=== PATIENT | female | born 1970 | race Caucasian/White ===

== ENCOUNTER 2018-06-17 10:16 | Emergency (ER) | payer MEDICAID ==
[2018-06-17] MEDS ORDERED: HYDROmorphone 2 MG Tab PO SCH (11:45)
--- NOTE | 2018-06-17 13:25 | CT ---
INDICATION: Fall. Pain above right hip and lower back, scoliosis. LUMBOSACRAL SPINE CT WITHOUT CONTRAST: Spiral 2.5 mm axial sections were obtained through the lumbosacral spine with sagittal and coronal reconstruction 06/17/18. Hypertrophic degenerative changes and disc disease with vacuum disc phenomenon are noted at T11-12 and L5-S1. Vertebral body and disc heights were fairly well maintained, although there is mild loss of vertebral body volume at L1, which likely is old. An osteoporotic compression fracture in that area could be present, however since no comparison studies are available. There are some mineral hypertrophic changes anteriorly off vertebral bodies in general, but are most prominent at the first 2 mentioned levels. The neural foramina appear to be fairly patent. There does appear to be some narrowing of the neural foramina at L5-S1, however and T11-12. A dextroconcave scoliosis is noted of the upper middle lumbar spine. Hypertrophic changes are also noted at the posterior elements of L5-S1 and T11- 12 especially on the left. There are also present at T12-L1 on the left and to a minimal extent on the right and also T1-2, T2-3 and relatively minimal T3-4. T 4-5 only minimal degenerative change at the right sided apophyseal joint. A definite acute fracture or dislocation was not identified. Minimally bulging discs are noted at L1-2, L2-3 and very minimally at L3-4. L4- 5 disc is mildly bulging in general also. There is some spinal canal narrowing-- spinal stenosis of mild degree at L5-S1 due to posterior hypertrophic degenerative changes and mildly bulging disc material. IMPRESSION: 1. Degenerative changes and disc disease as noted above with mild degree of spinal stenosis at L5-S1. 2. No acute fracture or dislocation. 3. Rotoscoliosis dextroconcave moderate degree upper middle lumbar spine. Report to called Dr. Wilson at approximately 1305 hours. [facility]
--- NOTE | 2018-06-17 13:36 | US ---
INDICATION: Trauma. Fall on 06/10/18 and 06/16/18 chest trauma. LEFT RIBS WITH CHEST: Two frontal views of the chest were obtained and revealed the heart to be normal in size and shape. A moderate dextroconvex rotoscoliosis of the lower middle thoracic spine is noted. An active infiltrate, effusion, contusion or pneumothorax was not identified. Five images of the left ribs were obtained and revealed anterolaterally slight offset at the fracture sites. No other bony abnormality was seen in the left ribs. IMPRESSION: 1. No acute process in the chest. 2. Scoliosis lower middle thoracic spine. 3. Three rib fractures 7, 8 and 9 anterolaterally on the left with slight offset at the fracture sites. Report to called Dr. Wilson at approximately 1305 hours. [facility]
--- NOTE | 2018-06-18 08:29 | EDM.PDOC ---
ED HPI GENERAL MEDICAL PROBLEM - General Chief Complaint: Back Pain or Injury Stated Complaint: BACK PAIN Time Seen by Provider: 06/17/18 10:45 Source of Information: Reports: Patient History Limitations: Reports: No Limitations - History of Present Illness INITIAL COMMENTS - FREE TEXT/NARRATIVE: This 47 woman who is known to have chronic lower back pain slipped last night and notes she has "numbness bilateral lower extremities ". "My back is killing me." Patient noted she fell after waking up then going to the bathroom and back to bed. She got tangled up and electrical cord and fell. She has a history of scoliosis and "a bad back without any surgery." 2 years ago her bad back was treated at [facility]. She's been followed by chiropractor. Her recent chiropractic visit was first part of May Recently she has been "trying to get away from my family who live in [place]." " My father is an A___ hole. He is a alcoholic. Many of the family are drug addicted and she had to "get out of town" and she does "not want to raise her 9- year-old daughter in a drug infested environment." In the past patient was into drugs and has completed a drug recovery 6-8 months ago. 05/20 2018 she fell and bruised her right chest. As she slipped and grabbed a towel bar, to break her fall, she fell onto furniture and traumatize right chest. Then recently 06/09 (Saturday) she was moving and unpacking her household goods that she had moved from [place] to [facility] and again she tripped and hurt: her left chest, right hip and left elbow. "Since 09 June my right hip is gotten "nasty bad". I have "natural loose ligaments and the trauma makes my hip feel worse." Last night, 06/16/18 she fell onto the floor and tripped over another extension cord. Patient's pain now is mostly in the left lower spine she has occasional tingling of her legs. The tingling in her legs is baseline but "it's stronger than was before." She has underlying fibromyalgia which she treats with Lyrica She's had a history of a bad back since she 6 weeks post 9 years ago and at that time had the onset of fibromyalgia and has had lower back left convex scoliosis. She notes her current fiance "pushes her." I feel like I can't get any rest"... " he keeps pushing me to unpack move items". She used to walk 2 miles a day. But since she's had her fibromyalgia _onset 6 weeks post 9 years ago she does not walk muchl. Rodrigues asked what she expected b me to do, she wanted me to "help me so I can operate." Has not eaten today so "I feel miserable". Tubal ligation 2008, uterine ablation 2011. 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: Musculoskeletal History: Reports: Other (See Below) Other Musculoskeletal History: scoliosis Psychiatric History: Reports: Anxiety, Depression - Past Surgical History HEENT Surgical History: Reports: Tonsillectomy Female Surgical History: Reports: Section Social & Family History - Family History Family Medical History: Noncontributory - Tobacco Use Smoking Status *Q: Current Every Day Smoker Years of Tobacco use: 20 Packs/Tins Daily: 1 - Caffeine Use Caffeine Use: Reports: Coffee - Recreational Drug Use Recreational Drug Use: Yes Recreational Drug Type: Reports: Marijuana/Hashish Recreational Drug Use Frequency: Monthly ED ROS GENERAL - Review of Systems Review Of Systems: ROS reveals no pertinent complaints other than HPI. ED EXAM,LOWER BACK PAIN/INJURY - Physical Exam Exam: See Below Text/Narrative:: Moderate distress with left chest wall discomfort, right hip pain. Left elbow pain Exam Limited By: No Limitations General Appearance: Alert, Moderate Distress Eye Exam: Bilateral Eye: Abnormal Pupil (Pupils pinpoint and nonreactive) Ears: Normal External Exam, Normal Canal, Normal TMs Nose: Normal Inspection, Normal Mucosa Throat/Mouth: Normal Inspection, Normal Lips, Normal Teeth, Normal Gums, Normal Oropharynx, Normal Voice, No Airway Compromise Head: Atraumatic, Normocephalic Neck: Normal Inspection, Supple Respiratory/Chest: No Respiratory Distress, Lungs Clear, Normal Breath Sounds, No Accessory Muscle Use, Chest Non-Tender, Other (Tender ribs 6 through 11 anterior axillary line and mid clavicular discomfort with palpation no step off or crepitance. No rales noted.) Cardiovascular: Normal Peripheral Pulses, Regular Rate, Rhythm, No Edema, No Gallop, No JVD, No Murmur, No Rub GI/Abdominal: Normal Bowel Sounds, Soft, Non-Tender, No Organomegaly, No Distention, No Abnormal Bruit, No Mass (Female) Exam: Deferred Rectal (Female) Exam: Deferred Back Exam: Other (Left convex lumbar thoracic scoliosis mild moderate severe left lumbar or spinal muscle spasm. Left trochanteric area mild tenderness. ) Neurological: Normal Dorsiflexion, CN II-XII Intact, Normal Plantar Flexion, Normal Gait, Normal Reflexes, No Motor/Sensory Deficits, Oriented x 3 DTR - Lower Extremities: 2+: Knee (R), Knee (L), Ankle (R), Ankle (L) Psychiatric: Other (Has moderate pain examination of her left paraspinal lumbar region muscles) Skin Exam: Warm Lymphatic: No Adenopathy Course - Vital Signs Last Recorded V/S: Last Vital Signs Temp 36.8 C 06/17/18 13:27 Pulse 84 06/17/18 13:27 Resp 18 06/17/18 13:27 BP 141/83 H 06/17/18 13:27 Pulse Ox 99 06/17/18 13:27 - Orders/Labs/Meds Labs: Laboratory Tests 06/17/18 06/17/18 06/17/18 Range/Units 11:50 11:50 11:50 WBC 6.1 (4.5-12.0) X10-3/uL RBC 4.57 (3.23-5.20) x10(6)uL Hgb 12.2 (11.5-15.5) g/dL Hct 36.5 (30.0-51.3) % MCV 79.7 L (80-96) fL MCH 26.6 L (27.7-33.6) pg MCHC 33.4 (32.2-35.4) g/dL RDW 17.3 H (11.5-15.5) % Plt Count 207 (125-369) X10(3)uL MPV 10.0 (7.4-10.4) fL Neut % (Auto) 61.2 (46-82) % Lymph % (Auto) 29.3 (13-37) % Routt % (Auto) 6.7 (4-12) % Eos % (Auto) 2 (1.0-5.0) % Baso % (Auto) 1 (0-2) % Neut # (Auto) 3.7 (1.6-8.3) # Lymph # (Auto) 1.8 (0.6-5.0) # Routt # (Auto) 0.4 (0.0-1.3) # Eos # (Auto) 0.1 (0.0-0.8) # Baso # (Auto) 0.1 (0.0-0.2) # Sodium 138 (135-145) mmol/L Potassium 4.2 (3.5-5.3) mmol/L Chloride 103 (100-110) mmol/L Carbon Dioxide 30 (21-32) mmol/L BUN 25 H (7-18) mg/dL Creatinine 0.8 (0.55-1.02) mg/dL Est Cr Clr Drug Dosing TNP Estimated GFR (MDRD) > 60 (>60) BUN/Creatinine Ratio 31.3 H (9-20) Glucose 91 (80-116) mg/dL Calcium 8.6 (8.6-10.2) mg/dL Total Bilirubin 0.3 (0.1-1.3) mg/dL AST 14 (5-25) IU/L ALT 16 (12-36) U/L Alkaline Phosphatase 101 (56-112) IU/L C-Reactive Protein < 0.2 L (0.5-0.9) mg/dL Total Protein 7.4 (6.0-8.0) g/dL Albumin 3.9 (3.5-5.2) g/dL Globulin 3.5 g/dL Albumin/Globulin Ratio 1.1 Meds: Medications Discontinued Medications Generic Name Dose Route Start Last Admin Trade Name Freq PRN Reason Stop Dose Admin Hydromorphone HCl 2 mg 06/17/18 11:45 06/17/18 12:02 Dilaudid PO 2 mg Q6H ARTHUR Administration Departure - Departure Time of Disposition: 12:00 (Patient carry on some much with her terminal "back pain "as CT was performed CT was negative. Left chest wall no rib fracture noted or chest into thoracic abnormality noted. No contusion noted.Patient has a low pain threshold as evidenced by over exuberant response to pain on evaluationof her chest and left hip. She change her medication to Robaxin 750 mg 4 times a day. Stop Using all her Ativan. Gradually progressive increase activity as tolerated. She is to restart walking. No evidence for disc disease. She also has history of drug dependency consequently is not a candidate for any narcotic medications that magnify her already addictive potential) Disposition: Home, Self-Care 01 Condition: Fair Clinical Impression: Chemical dependency, Personality disorder, Low pain threshold Back pain Qualifiers: Back pain location: low back pain Chronicity: chronic Back pain laterality: left Sciatica presence: without sciatica Qualified Code(s): M54.5 - Low back pain; G89.29 - Other chronic pain - Discharge Information *PRESCRIPTION DRUG MONITORING PROGRAM REVIEWED*: Not Applicable *COPY OF PRESCRIPTION DRUG MONITORING REPORT IN PATIENT FRANKLIN: Not Applicable Prescriptions: Hydrocodone/Acetaminophen [Hydrocodon-Acetaminophen 5-325] 1 each PO Q6HR PRN # 18 tablet PRN Reason: Pain Methocarbamol [Robaxin-750] 750 mg PO QID #60 tablet Instructions: Incentive Spirometer, Rib Fracture Referrals: Magui Pro NP [Nurse Practitioner] - PCP,Not In Area [Primary Care Provider] - Beulah Almaraz NP [Nurse Practitioner] - Forms: ED Department Discharge Additional Instructions: The left 8/9/10 ribs are fractured. You've been prescribed an incentive spiromter uses every 2-3 hours. This will help prevent your lungs from partially collapsing or resulting in a pneumonia or bad lung infection. No abnormality noted on your lumbar spine except for scoliosis which is not new for you. You're going to have moderate muscle spasm so I prescribed a medicine that the neurosurgeons which we'll treat the muscle spasm and won't make you so sedated: Robaxin 750 mg 4 times a day as needed for muscle spasm. Follow-up your caregiver or doctor in 1 week. Earlier if worse You have been prescribed Vicodin for pain :1-2 tablets every 4-6 hours for pain Invariably patients get constipated with pain medicines. Consequently I prescribe (over the counter) Dulcolax 5 mg 1 tablet daily while you are taking pain medicines.
== END 2018-06-17 13:38 | disposition home or self-care (01) ==
LOC: FB.ED 10:16
DX: M54.5 Low back pain (principal); G89.29 Other chronic pain; F17.210 Nicotine dependence, cigarettes, uncomplicated; F41.9 Anxiety disorder, unspecified; F32.9 Major depressive disorder, single episode, unspecified; F19.20 Other psychoactive substance dependence, uncomplicated; F60.9 Personality disorder, unspecified
CPT/HCPCS: 36415; 71101; 72131; 80053; 85025; 86140; 94150; 99284; A9270

== ENCOUNTER 2018-08-15 12:30 | Emergency (ER) | payer MEDICAID ==
[~2018-08-15 12:30] MED LIST: Ketorolac 60 MG/2 ML SDV IM ONE
--- NOTE | 2018-08-15 12:36 | EDM.PDOC ---
ED HPI GENERAL MEDICAL PROBLEM - General Chief Complaint: Lower Extremity Injury/Pain Stated Complaint: LEFT HIP Time Seen by Provider: 08/15/18 12:32 Source of Information: Reports: Patient, EMS History Limitations: Reports: No Limitations - History of Present Illness INITIAL COMMENTS - FREE TEXT/NARRATIVE: Patient slipped on ice while walking dog, struck head against garage door, the fell onto left hip. No LOC. Complains of left hip pain. Patient was able to bear weight per EMS. Onset: Today Onset Date: 08/15/18 Onset Time: 10:30 Duration: Hour(s): (2) Location: Reports: Head, Lower Extremity, Left Quality: Reports: Dull Severity: Moderate - Related Data Allergies Allergy/AdvReac Type Severity Reaction Status Date / Time No Known Allergies Allergy Verified 06/17/18 11:53 Home Meds: Home Meds Acetaminophen/HYDROcodone [[place] 325-5 MG] 1 tab PO Q6H PRN #10 tab 08/15/18 [Rx ] DULoxetine HCl [Cymbalta] 60 mg PO DAILY 08/15/18 [History] LORazepam 2 mg PO ASDIRECTED PRN 08/15/18 [History] Methylphenidate HCl [Methylphenidate ER] 36 mg PO ACBREAKFAST 08/15/18 [History] Methylphenidate [Ritalin] 10 mg PO PCDINNER PRN 08/15/18 [History] Pregabalin [Lyrica] 200 mg PO TID 08/15/18 [History] tiZANidine [Zanaflex] 4 mg PO TID 08/15/18 [History] 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: Musculoskeletal History: Reports: Other (See Below) Other Musculoskeletal History: scoliosis Neurological History: Reports: Other (See Below) (Fibromyalgia) Psychiatric History: Reports: Anxiety, Depression - Past Surgical History HEENT Surgical History: Reports: Tonsillectomy Female Surgical History: Reports: Section Social & Family History - Family History Family Medical History: Noncontributory - Tobacco Use Smoking Status *Q: Current Every Day Smoker Tobacco Use Within Last Twelve Months: Cigarettes - Caffeine Use Caffeine Use: Reports: Coffee - Alcohol Use Alcohol Use History: No - Recreational Drug Use Recreational Drug Use: Yes Recreational Drug Type: Reports: Marijuana/Hashish Review of Systems - Review of Systems Review Of Systems: ROS reveals no pertinent complaints other than HPI. ED EXAM, GENERAL - Physical Exam Exam: See Below Exam Limited By: No Limitations General Appearance: Alert, WD/WN, No Apparent Distress Eye Exam: Bilateral Eye: EOMI, PERRL Ears: Normal External Exam Nose: Normal Inspection Throat/Mouth: Normal Inspection, No Airway Compromise Head: Atraumatic, Normocephalic Neck: Normal Inspection, Non-Tender Respiratory/Chest: No Respiratory Distress, Lungs Clear Cardiovascular: Regular Rate, Rhythm, No Murmur Peripheral Pulses: 2+: Dorsalis Pedis (L) GI/Abdominal: Soft, Non-Tender Extremities: Normal Capillary Refill, Other (moderate tenderness, ecchymosis and swelling to left hip) Neurological: Alert, Oriented, Normal Cognition, No Motor/Sensory Deficits Psychiatric: Normal Affect, Normal Mood Skin Exam: Warm, Dry Course - Vital Signs Last Recorded V/S: Last Vital Signs Temp 36.4 C 08/15/18 12:25 Pulse 92 08/15/18 12:25 Resp 20 08/15/18 12:25 BP 95/63 08/15/18 12:25 Pulse Ox 97 08/15/18 12:25 - Orders/Labs/Meds Orders: Active Orders 24 hr Category Date Time Status Cervical Spine wo Cont [CT] Stat Exams 08/15/18 12:30 Taken Head wo Cont [CT] Stat Exams 08/15/18 12:30 Taken Pelvis wo Cont [CT] Stat Exams 08/15/18 12:30 Taken Meds: Medications Discontinued Medications Generic Name Dose Route Start Last Admin Trade Name Maycolq PRN Reason Stop Dose Admin Hydrocodone Bitart/Acetaminophen 1 tab 08/15/18 13:46 [place] 325-5 Mg PO 08/15/18 13:47 ONETIME ONE Ketorolac Tromethamine 60 mg 08/15/18 12:30 08/15/18 13:22 Toradol IM 08/15/18 12:31 60 mg ONETIME ONE Administration - Radiology Interpretation Free Text/Narrative:: CT Head: No acute process. (per Dr. Dubose) CT C-spine: No fracture or subluxation. (per Dr. Dubose) CT Pelvis: No fracture or dislocation. (per Dr. Dubose) - Re-Assessments/Exams Free Text/Narrative Re-Assessment/Exam: 08/15/18 13:53 No relief of pain after Toradol 60mg IM. BP 122/70. Will give [place] 5/325 PO. Departure - Departure Time of Disposition: 13:56 Disposition: Home, Self-Care 01 Condition: Good Clinical Impression: Hematoma of left hip Qualifiers: Encounter type: initial encounter Qualified Code(s): S70.02XA - Contusion of left hip, initial encounter - Discharge Information *PRESCRIPTION DRUG MONITORING PROGRAM REVIEWED*: Yes *COPY OF PRESCRIPTION DRUG MONITORING REPORT IN PATIENT [place]ANKLIN: No Prescriptions: Acetaminophen/HYDROcodone [[place] 325-5 MG] 1 tab PO Q6H PRN #10 tab PRN Reason: Pain Instructions: Contusion, [id number] Referrals: Brittney Jasso COOKER MECHANIC [Primary Care Provider] - 3 Days Forms: ED Department Discharge Additional Instructions: Rest. Take OTC Ibuprofen as needed. Take [place] as needed for breakthrough pain. Hold Lorazepam while taking [place]. Follow up with your primary physician in 3 days. - My Orders Last 24 Hours: My Active Orders 08/15/18 12:30 Cervical Spine wo Cont [CT] Stat Head wo Cont [CT] Stat Pelvis wo Cont [CT] Stat - Assessment/Plan Last 24 Hours: My Active Orders 08/15/18 12:30 Cervical Spine wo Cont [CT] Stat Head wo Cont [CT] Stat Pelvis wo Cont [CT] Stat
[2018-08-15] MEDS ORDERED: Acetaminophen/HYDROcodone 325-5 MG Tab PO ONE (13:46)
--- NOTE | 2018-08-15 14:06 | CT ---
INDICATION: Fell walking the dog this a.m. CT HEAD WITHOUT CONTRAST: Spiral examination of the brain was obtained axially with sagittal and coronal reconstructions, 08/15/18 - no comparisons. Total exam DLP = 1,270.76 mGy-cm. No shift of midline structures, ventricular abnormalities, or abnormal areas of density were identified of any significance. There were some areas of increased density noted in basal ganglia bilaterally, likely representing non- clinically significant calcification. No bleeding site or hematoma was seen. No cranial fracture site was identified. Paranasal sinuses and mastoid air cells were well-aerated. IMPRESSION: Normal CT brain, no acute intracranial abnormality. MTDD
--- NOTE | 2018-08-15 14:13 | CT ---
INDICATION: Trauma, fell walking the dog this a.m. CT CERVICAL WITHOUT CONTRAST: Spiral 2.5 mm axial sections were obtained through the cervical spine with sagittal and coronal reconstructions, 08/15/18 - no comparisons. Total exam DLP = 372.53 mGy-cm. Hypertrophic degenerative changes and disk disease are suggested at the C5-6, C6 -7 levels with narrowed disk space and hypertrophic spurring anteriorly and posteriorly at those levels. Impingement on the neural foramina at those levels is noted, mostly on the right and more prominently at C6-7 than at C5-6. Vertebral body heights were maintained without evidence of a fracture or dislocation. Degenerative changes of moderate degree are noted at the atlantoodontoid joint. The odontoid and the atlas were intact in appearance. Degenerative changes are noted at the uncinate joints at the C5-6 and C6-7 levels, more severe at C6-7. Some relatively minimal degenerative change is noted at C7-T1 with the disk space slightly narrowed at that level also. Bone density appeared to be normal. Prevertebral space appeared to be normal. Apical lung included on the study was unremarkable. IMPRESSION: 1. No acute fracture or dislocation identified. 2. Degenerative changes and disk disease as noted above. MTDD
--- NOTE | 2018-08-15 14:28 | CT ---
INDICATION: Trauma, fell walking the dog this a.m., hematoma/bruise left hip area. CT PELVIS WITHOUT CONTRAST: Spiral 1.25 mm axial sections were obtained through the pelvis with sagittal and coronal reconstructions, 08/15/18 - no comparisons. Total exam DLP = 404.95 mGy-cm. The appendix appeared normal, visualized on axial images #48 through #86. No evidence of free air or bowel obstruction was seen. Urinary bladder appeared to be intact overall but with suggestion of slight thickening of the wall, which raises question of process such as cystitis - correlate clinically. Degenerative changes and disk disease are noted at L5-S1 with marked narrowing of the disk space, sclerosis, subchondral cystic changes, hypertrophic spurring , and vacuum disk phenomenon. Mild degenerative changes are noted at the sacroiliac joint on the right with minimal degenerative changes at the left sacroiliac joint. Mild degenerative changes are noted at the hip joints. No evidence of a fracture or dislocation was identified. IMPRESSION: 1. No acute fracture or dislocation. 2. 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 3. Suggestion of slightly thickened wall of urinary bladder, which could be on the basis of cystitis and should be correlated clinically. Report was called to Dr. Winters at 1340 hours on 08/15/18. [facility]
== END 2018-08-15 14:57 | disposition home or self-care (01) ==
LOC: FB.ED 12:30
DX: S70.02XA Contusion of left hip, initial encounter (principal); F17.210 Nicotine dependence, cigarettes, uncomplicated; F41.9 Anxiety disorder, unspecified; F32.9 Major depressive disorder, single episode, unspecified; Z79.899 Other long term (current) drug therapy; W00.0XXA Fall on same level due to ice and snow, initial encounter
CPT/HCPCS: 70450; 72125; 72192; 99284; A9270; J1885

== ENCOUNTER 2018-11-19 16:01 | Emergency (ER) | payer MEDICAID ==
--- NOTE | 2018-11-19 16:56 | EDM.PDOC ---
ED HPI GENERAL MEDICAL PROBLEM - General Chief Complaint: Upper Extremity Injury/Pain Stated Complaint: ULCERATION L FOREARM Time Seen by Provider: 11/19/18 16:50 Source of Information: Reports: Patient History Limitations: Reports: No Limitations - History of Present Illness INITIAL COMMENTS - FREE TEXT/NARRATIVE: Struck left forearm against car window frame 10 days ago. Patient states the area is ulcerated, has been applying triple antibiotic ointment. Patient worried the area may be infected. Has had chills. Also c/o left toe pain, possibly due to infection. Duration: Day(s): (10) Location: Reports: Upper Extremity, Left Severity: Mild - Related Data Allergies Allergy/AdvReac Type Severity Reaction Status Date / Time No Known Allergies Allergy Verified 08/15/18 21:46 Home Meds: Home Meds Acetaminophen/HYDROcodone [[place] 325-5 MG] 1 tab PO Q6H PRN #10 tab 08/15/18 [Rx ] DULoxetine HCl [Cymbalta] 60 mg PO DAILY 08/15/18 [History] LORazepam 2 mg PO ASDIRECTED PRN 08/15/18 [History] Methylphenidate HCl [Methylphenidate ER] 36 mg PO ACBREAKFAST 08/15/18 [History] Methylphenidate [Ritalin] 10 mg PO PCDINNER PRN 08/15/18 [History] Pregabalin [Lyrica] 200 mg PO TID 08/15/18 [History] tiZANidine [Zanaflex] 4 mg PO TID 08/15/18 [History] cephALEXin [Keflex] 500 mg PO TID #30 cap 11/19/18 [Rx] Past Medical History 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: Musculoskeletal History: Reports: Other (See Below) Other Musculoskeletal History: scoliosis Neurological History: Reports: Other (See Below) (Fibromyalgia) Psychiatric History: Reports: Anxiety, Depression - Past Surgical History HEENT Surgical History: Reports: Tonsillectomy Female Surgical History: Reports: Section Social & Family History - Family History Family Medical History: Noncontributory - Tobacco Use Smoking Status *Q: Current Every Day Smoker Tobacco Use Within Last Twelve Months: Cigarettes - Caffeine Use Caffeine Use: Reports: Coffee Review of Systems - Review of Systems Review Of Systems: ROS reveals no pertinent complaints other than HPI. ED EXAM, GENERAL - Physical Exam Exam: See Below Exam Limited By: No Limitations General Appearance: Alert, No Apparent Distress Ears: Normal External Exam Nose: Normal Inspection Throat/Mouth: No Airway Compromise Head: Atraumatic, Normocephalic Neck: Full Range of Motion Respiratory/Chest: No Respiratory Distress, Lungs Clear, Normal Breath Sounds Cardiovascular: Regular Rate, Rhythm, No Murmur Peripheral Pulses: 2+: Radial (L) Extremities: Other (Quarter size superficial ulceration to left forearm and dime size superficial ulceration distal to this, neither appears infected, no cellulitis or abscess; left 4th toe slightly erythemic, no fluctuance) Neurological: Alert, Normal Cognition Course - Vital Signs Last Recorded V/S: Last Vital Signs Temp 36.7 C 11/19/18 16:25 Pulse 87 11/19/18 16:25 Resp BP 129/7 L 11/19/18 16:25 Pulse Ox Departure - Departure Time of Disposition: 16:55 Disposition: Home, Self-Care 01 Condition: Good Clinical Impression: Skin ulcer of forearm, limited to breakdown of skin, Paronychia of toe of left foot due to ingrown toenail - Discharge Information *PRESCRIPTION DRUG MONITORING PROGRAM REVIEWED*: No *COPY OF PRESCRIPTION DRUG MONITORING REPORT IN PATIENT [place]: Not Applicable Prescriptions: cephALEXin [Keflex] 500 mg PO TID #30 cap Instructions: Skin Tear Care, [id number] Forms: ED Department Discharge Additional Instructions: Fill prescription for Keflex and take as directed. Apply Bacitracin ointment to the forearm wounds daily. Follow up with your primary physician in 3-4 days if symptoms don't improve, sooner if symptoms worsen.
== END 2018-11-19 16:50 | disposition home or self-care (01) ==
LOC: FB.ED 16:01
DX: L98.491 Non-pressure chronic ulcer of skin of other sites limited to breakdown of skin (principal); L03.032 Cellulitis of left toe; L60.0 Ingrowing nail; F17.210 Nicotine dependence, cigarettes, uncomplicated; F41.9 Anxiety disorder, unspecified; F32.9 Major depressive disorder, single episode, unspecified; Z79.899 Other long term (current) drug therapy
CPT/HCPCS: 99283

== ENCOUNTER 2019-04-04 14:13 | Emergency (ER) | payer MEDICAID ==
--- NOTE | 2019-04-04 14:52 | EDM.PDOC ---
ED HPI GENERAL MEDICAL PROBLEM - General Chief Complaint: Back Pain or Injury Stated Complaint: BACK PAIN Time Seen by Provider: 04/04/19 14:48 Source of Information: Reports: Patient History Limitations: Reports: No Limitations - History of Present Illness INITIAL COMMENTS - FREE TEXT/NARRATIVE: 48-year-old female with history of chronic back pain "all my life" who reports increasing back pain since yesterday in her lower back and radiation down her left leg. The pain in her lower back and radiation down her left leg is not new. She states she has it every day of her life. It just seems to be worse since just today. She has had no bowel or bladder control problems. She has had no leg weakness. She has had no fevers or chills. There was no trauma or inciting event that she can remember that caused this. She reports the pain as an 8/10. It is a pinching and "knot like" pain that is worse with movement and with palpation. She states she has taken ibuprofen at home without relief. She does report normal urination. No hematuria. No dysuria. She also reports bilateral ear pain and some nasal congestion. She also reports "skin lesions" that her on her arms, neck and trunk. She has also had these for some time but she feels they are also worse after her MRI and she wonders if the MRI "cause them to come out". She also reports nausea but no vomiting. She has been able to drink liquids well. There are no other associated signs or symptoms. There are no other modifying factors. Onset: Other (Ongoing back pain but with worsening since yesterday.) Duration: Getting Worse Location: Reports: Back Quality: Reports: Sharp, Other (Pinching and knot like) Severity: Moderate (to a) Improves with: Reports: Rest Worsens with: Reports: Other (Palpation), Movement Context: Reports: Other (As above) Associated Symptoms: Reports: No Other Symptoms (Except the multiple other complaints as above) Treatments HAND I CUTTER: Reports: Acetaminophen, NSAIDS back Pain Score (Numeric/FACES): 8 - Related Data Allergies Allergy/AdvReac Type Severity Reaction Status Date / Time nicotine Allergy Rash Verified 04/04/19 14:25 Home Meds: Home Meds DULoxetine HCl [Cymbalta] 60 mg PO DAILY 08/15/18 [History] LORazepam 2 mg PO ASDIRECTED PRN 08/15/18 [History] Methylphenidate HCl [Methylphenidate ER] 36 mg PO ACBREAKFAST 08/15/18 [History] Methylphenidate [Ritalin] 10 mg PO PCDINNER PRN 08/15/18 [History] Pregabalin [Lyrica] 200 mg PO TID 08/15/18 [History] tiZANidine [Zanaflex] 4 mg PO TID 08/15/18 [History] Mupirocin Oint [Bactroban Oint] 1 dose TP TID #1 tube 04/04/19 [Rx] Past Medical History Musculoskeletal History: Reports: Back Pain, Chronic, Fibromyalgia, Other (See Below) Other Musculoskeletal History: scoliosis Psychiatric History: Reports: ADD, Addiction (Reports of EtOH abuse in the past. ), Anxiety, Depression, PTSD, Other (See Below) (Personality disorder) Dermatologic History: Reports: Other (See Below) (? Neurodermatitis) - Infectious Disease History Infectious Disease History: Reports: Chicken Pox - Past Surgical History HEENT Surgical History: Reports: Adenoidectomy, Tonsillectomy Female Surgical History: Reports: Section, Endometrial Ablation Musculoskeletal Surgical History: Reports: Other (See Below) (Left thumb surgery ) Social & Family History - Tobacco Use Smoking Status *Q: Current Every Day Smoker - Caffeine Use Caffeine Use: Reports: Coffee - Alcohol Use Alcohol Use History: Yes Alcohol Use Frequency: Socially (Patient is very vague about her alcohol consumption.) - Recreational Drug Use Recreational Drug Type: Reports: Marijuana/Hashish - Living Situation & Occupation Occupation: Unemployed Social History Comment: She was brought to the emergency department by a neighbor. ED ROS GENERAL - Review of Systems Review Of Systems: See Below Constitutional: Reports: No Symptoms HEENT: Reports: Ear Pain, Other (Nasal congestion) Respiratory: Reports: No Symptoms Cardiovascular: Reports: No Symptoms Endocrine: Reports: No Symptoms GI/Abdominal: Reports: Nausea. Denies: Vomiting : Reports: No Symptoms Musculoskeletal: Reports: Back Pain Skin: Reports: Rash, Lesions Neurological: Reports: Other (Some left lumbar radicular type symptoms.) Hematologic/Lymphatic: Reports: No Symptoms Immunologic: Reports: No Symptoms ED EXAM,LOWER BACK PAIN/INJURY - Physical Exam Exam: See Below Exam Limited By: No Limitations General Appearance: Alert, WD/WN, No Apparent Distress Eye Exam: Bilateral Eye: EOMI, Normal Inspection, PERRL Ears: Normal External Exam, Normal Canal, Hearing Grossly Normal, Normal TMs Nose: No Blood, Nasal Drainage, Clear Rhinorrhea Throat/Mouth: Normal Inspection, Normal Lips, Normal Oropharynx, Normal Voice, No Airway Compromise Head: Atraumatic, Normocephalic Neck: Normal Inspection, Supple, Non-Tender, Full Range of Motion Respiratory/Chest: No Respiratory Distress, Lungs Clear, Normal Breath Sounds, No Accessory Muscle Use, Chest Non-Tender Cardiovascular: Normal Peripheral Pulses, Regular Rate, Rhythm, No Murmur GI/Abdominal: Normal Bowel Sounds, Soft, Non-Tender, No Mass Back Exam: Full Range of Motion, Paraspinal Tenderness (And lumbar area.), Other (No crepitus or bony deformity.) Extremities: Normal Range of Motion, Non-Tender, No Pedal Edema, Normal Capillary Refill, Other (She does have some erythematous areas on her toes without there is no cellulitis these appear to be picking-type lesions) Neurological: Alert, Normal Dorsiflexion, CN II-XII Intact, Normal Plantar Flexion, No Motor/Sensory Deficits, Oriented x 3 Psychiatric: Flat Affect Skin Exam: Warm, Dry, Normal Color, Rash (She has diffuse rash that could be impetigo but also appears to be a neurodermatitis or picking-type rash) Course - Vital Signs Last Recorded V/S: Last Vital Signs Temp 37.0 C 04/04/19 14:36 Pulse 89 04/04/19 14:36 Resp 17 04/04/19 14:36 BP 130/86 04/04/19 14:36 Pulse Ox 97 04/04/19 14:36 - Orders/Labs/Meds Meds: Medications Discontinued Medications Generic Name Dose Route Start Last Admin Trade Name Freq PRN Reason Stop Dose Admin Ketorolac Tromethamine 60 mg 04/04/19 15:06 04/04/19 15:15 Toradol IM 04/04/19 15:07 60 mg ONETIME ONE Administration - Re-Assessments/Exams Free Text/Narrative Re-Assessment/Exam: 04/04/19 15:05: Patient with chronic back pain. No history of recent trauma. She has no neurologic deficits or any concerning signs or symptoms. She has been referred to a pain clinic by her primary provider. She is in the process of seeing them and she recently had an MRI ordered by the pain clinic. I will give the patient Toradol 60 mg IM and have told her for any pain control measures she would need to go through her primary doctor and that we would not be able to provide her with any prescriptions for pain medications. In regard to the "lesions" or arms, neck and trunk, these appear to be "picking" type lesions and appear to be neurodermatitis. However, I we will give her a prescription for Bactroban ointment that she can use in case this is an impetiginous type eruption. She once again was urged to follow-up with her primary provider for any further issues. Departure - Departure Time of Disposition: 15:10 Disposition: Home, Self-Care 01 Condition: Good Clinical Impression: Chronic back pain greater than 3 months duration, Skin lesions, generalized, Neurodermatitis - Discharge Information Prescriptions: Mupirocin Oint [Bactroban Oint] 1 dose TP TID #1 tube Instructions: Back Exercises, [id number], Chronic Back Pain, [id number] Referrals: Josselin Rivera NP [Physician] - Forms: ED Department Discharge Additional Instructions: You appear to be having a worsening of your chronic back pain. You were given a Toradol injection to help with her pain you should follow-up with your primary provider and with your pain clinical scientist for ongoing management of your chronic back pain. We are not able to provide you with any prescriptions for pain medications for your chronic pain through the emergency department. In regards to the lesions on your skin, you appear to have what is called a neurodermatitis or picking of your skin. This could also be a bacterial skin infection like impetigo and I am placing you on an antibiotic ointment ( Bactroban ointment). You should avoid scratching or picking at these sores. Your ear exam was normal. Continue to take ibuprofen and Tylenol as needed for her pain. Back to the emergency department for bowel or bladder control problems , ear or any acute medical problem. Once again, you should follow-up with your primary provider for any of these chronic issues.
[2019-04-04] MEDS: Ketorolac 60 MG/2 ML SDV IM ONE (15:15)
== END 2019-04-04 15:30 | disposition home or self-care (01) ==
LOC: FB.ED 14:13
DX: M54.5 Low back pain (principal); G89.29 Other chronic pain; L28.0 Lichen simplex chronicus; F41.9 Anxiety disorder, unspecified; F32.9 Major depressive disorder, single episode, unspecified; F17.200 Nicotine dependence, unspecified, uncomplicated; Z91.048 Other nonmedicinal substance allergy status; Z79.899 Other long term (current) drug therapy
CPT/HCPCS: 96372; 99283; J1885